=== PATIENT | female | born 1990 | race Caucasian/White ===

== ENCOUNTER 2022-02-09 06:50 | Emergency (ER) | payer BC ==
[2022-02-09] MEDS ORDERED: Morphine 4 MG/ML VIAL ONE (07:58)
[2022-02-09] MEDS ORDERED: Ketorolac Tromethamine 30 MG/ML VIAL ONE (07:58)
[2022-02-09] MEDS ORDERED: Acetaminophen 500 MG TAB ONE (07:58)
[2022-02-09 08:15] LABS: #Eosinphils 0.1 10x3/uL (0.0-0.5); #Monocytes 0.7 10x3/uL (0.0-1.1); #Neutrophils 6.3 10x3/uL (1.5-8.4); %Basophils 0.3 % (0.0-2.0); %Eosinophils 0.9 % (0.0-6.0); %Lymphocytes 21.4 % (18.0-47.0); %Monocytes 7.9 % (0.0-10.0); %Neutrophils 69.3 % (40.0-75.0); Hemoglobin 14.4 g/dL (12.0-15.5); Mean Corpuscular HGB CONC 35.8 g/dL (32.0-36.0); Mean Corpuscular Hemoglobin 33.4 pg (27.0-33.0); Mean Corpuscular Volume 93.3 fl (81.6-98.3); Platelet Count 338 10x3/uL (150-450); RBC Distribution Width 11.9 % (11.5-14.5); Red Blood Cell (RBC) Count 4.31 10x6/uL (3.90-5.03); White Blood Cell (WBC) Count 9.1 10x3/uL (3.5-10.5)
[2022-02-09 08:17] LABS: BHCG - Serum Negative (NEGATIVE); Pregs Control Background? CLEAR/WHITE (CLR/WHITE); Pregs Control Bar Appear? YES (CONTROL BAR)
[2022-02-09 08:20] LABS: Anion Gap 14 mmol/L (10-20); BUN (Urea Nitrogen) 7 mg/dL (7.0-18.7); Calc. Creatinine Clearance 0 mL/min (70-130); Calcium 9.7 mg/dL (7.8-10.44); Carbon Dioxide 24 mmol/L (22-29); Chloride 104 mmol/L (98-107); Estimated GFR 114; Glucose 91 mg/dL (70-105); Potassium 3.9 mmol/L (3.5-5.1); Sodium 138 mmol/L (136-145)
[2022-02-09] MEDS ORDERED: diphenhydrAMINE 50 MG/ML VIAL ONE (09:05)
[2022-02-09] MEDS ORDERED: Famotidine/PF 20 mg/2ml Vial ONE (09:05)
[2022-02-09] MEDS ORDERED: methylPREDNISolone Sod Succ 40 MG VIAL ONE (09:05)
[2022-02-09] MEDS ORDERED: Iopamidol 370 76% 100 ML VIAL ONE (09:14)
== END 2022-02-09 11:09 | disposition home or self-care (01) ==
LOC: CSHERS 06:50
DX: M54.2 Cervicalgia (principal)
CPT/HCPCS: 70498; 80048; 84703; 85025; 96374; 96375; J1200; J1885; J2270; J2920; Q9967; S0028